=== PATIENT | male | born 1975 | race Hispanic/Latino ===

== ENCOUNTER 2024-02-26 11:02 | Emergency (ER) | payer OTHER ==
[2024-02-26 11:28] LABS: #Basophils 0.1 thou/uL (0.0-0.2); #Lymphocytes 1.7 thou/uL (1.20-3.40); #Monocytes 0.5 thou/uL (0.11-0.59); #Neutrophils 5.5 thou/uL (1.40-6.50); %Basophils 0.9 % (0.0-1.0); %Eosinophils 0.5 % (0.0-10.0); %Lymphocytes 21.3 % (21.0-51.0); %Monocytes 6.9 % (0.0-10.0); %Neutrophils 70.5 % (42.0-75.0); Hematocrit 48.6 % (42.0-52.0); Hemoglobin 15.4 g/dL (14.0-18.0); Mean Corpuscular HGB CONC 31.6 g/dL (32.0-36.0); Mean Corpuscular Hemoglobin 26.1 pg (27.0-31.0); Mean Corpuscular Volume 82.6 fl (78.0-98.0); Platelet Count 259 10x3/uL (130-400); RBC Distribution Width 11.7 % (11.5-14.5); Red Blood Cell (RBC) Count 5.88 mill/uL (4.70-6.10); White Blood Cell (WBC) Count 7.8 10x3/uL (4.8-10.8)
[2024-02-26] MEDS ORDERED: Sodium Chloride 0.9% 1,000 ML ONE ×2 (11:32→12:40)
[2024-02-26] MEDS ORDERED: Aspirin Chewable 81 MG TAB ONE (11:35)
[2024-02-26] MEDS ORDERED: Acetaminophen 500 MG TAB ONE (11:35)
[2024-02-26 11:46] LABS: ALT (SGPT) 10 U/L (8-55); AST (SGOT) 13 U/L (5-34); Albumin 4.6 g/dL (3.5-5.0); Alkaline Phosphatase 123 U/L (40-110); Anion Gap 20 mmol/L (10-20); BUN (Urea Nitrogen) 43 mg/dL (8.4-25.7); Bilirubin, Total 0.6 mg/dL (0.2-1.2); Calc. Creatinine Clearance 0 mL/min (70-130); Calcium 10.5 mg/dL (7.8-10.44); Carbon Dioxide 24 mmol/L (22-29); Chloride 85 mmol/L (98-107); Estimated GFR 42; Globulin 3.9 g/dL (2.4-3.5); Potassium 4.3 mmol/L (3.5-5.1); Protein, Total 8.5 g/dL (6.0-8.3); Sodium 125 mmol/L (136-145)
[2024-02-26 11:49] LABS: Phosphorus 5.8 mg/dL (2.3-4.7)
[2024-02-26 11:51] LABS: Lipase 125 U/L (8-78); Magnesium 2.1 mg/dL (1.6-2.6)
[2024-02-26 11:55] LABS: Troponin I Less than 0.010 ng/mL (< 0.028)
[2024-02-26 11:56] LABS: Glucose 514 mg/dL (70-105)
[2024-02-26] MEDS ORDERED: Insulin Regular, Human 100 UNIT/ML 10 ML VIAL ONE (12:00)
[2024-02-26 12:01] LABS: Base Excess-Venous 2.9 mmol/L (-2.0 to 3.0); Bicarbonate (HCO3v) 28.6 mmol/L (22.0-28.0); CO2 Tension (PvCO2) 46.2 mmHg (42.0-51.0); Calcium, Ionized 1.11 mmol/L (1.15-1.33); Chloride 88 mmol/L (98-107); Hemoglobin - Calc 16.7 g/dL (14.0-18.0); Potassium 4.7 mmol/L (3.5-5.1); Sodium 127 mmol/L (138-145); vO2 Saturation-calc 45.3 % (60.0-85.0)
[2024-02-26] MEDS ORDERED: Ibuprofen 200 MG TAB ONE (12:47)
[2024-02-26 13:28] LABS: Bilirubin Negative (Negative); Blood, Urine Negative (Negative); Clarity Clear (Clear); Glucose, Urine (Dipstick) >=1000 mg/dL (Negative); Ketone, Urine Negative (Negative); Leukocyte Negative (Negative); Nitrite Negative (Negative); Protein, Urine (Dipstick) Negative (Neg-Trace); Urobilinogen 0.2 mg/dL (Less than 2); pH, Urine 5.5 (5.0-9.0)
[2024-02-26 13:29] LABS: CAUTI Indications for Culture Alt mental st,lethar; RBC/HPF 0-3 HPF (0-3); Urine Culture Reflex No No; WBC/HPF 0-3 HPF (0-3)
[2024-02-26 14:52] LABS: Troponin I Less than 0.010 ng/mL (< 0.028)
== END 2024-02-26 15:16 | disposition home or self-care (01) ==
LOC: NAV ERS 11:02
DX: E11.65 Type 2 diabetes mellitus with hyperglycemia (principal); R55 Syncope and collapse; R29.700 NIHSS score 0; I10 Essential (primary) hypertension; E78.00 Pure hypercholesterolemia, unspecified; Z79.899 Other long term (current) drug therapy
CPT/HCPCS: 36416; 71046; 80053; 81001; 82010; 82330; 82803; 83690; 83735; 84100; 84484; 85025; 93005; 96361; 96374; J1815; J7050